=== PATIENT | female | born 1945 | race Caucasian/White ===

== ENCOUNTER 2016-11-17 15:09 | Emergency (ER) | payer MEDICAID, OTHER ==
[~2016-11-17] VITALS: Ht 154.9 cm; Wt 64.5 kg
[~2016-11-17 15:09] MED LIST: ATEN50TA PO; GABA100C14 PO; HYDR-906 PO; IBUP-1542 PO; LOPE2CAP PO; ONDA4TAB35 PO
[2016-11-17 15:11] VITALS: Ht 154.9 cm; Wt 64.5 kg
[2016-11-17] MEDS ORDERED: KETOROLAC 30 MG INJ IM STA (16:20)
[2016-11-17] MEDS ORDERED: HYDROCODONE/APAP (5/325) TAB PO ONE (16:30)
--- NOTE | 2016-11-17 17:01 | ERD ---
ER Documentation Chief Complaint Date/Time DATE: 11/17/16 TIME: 17:00 Chief Complaint LEFT BREAST PAIN X 3 DAYS HPI This 71-year-old female comes in complaining of left breast pain is been going on for 3 days. Is made worse by squeezing the breast. She is the pain is in the breast itself and not her chest. She has no shortness of breath nausea or vomiting. She has no pain in her right breast. There is been no discharge she has had no fevers. ROS All systems reviewed and are negative except as per history of present illness. Medications Home Meds Active Scripts Ibuprofen* (Ibuprofen*) 600 Mg Tablet, 600 MG PO Q6, #30 TAB Prov:ELI BENNETT PA-C 03/22/16 Hydrocodone/Acetaminophen ([place] 5-325 Tablet) 1 Each Tablet, 1 TAB PO Q6H Y for PAIN, #15 TAB Prov:NARA SAPP PA-C 02/27/16 Loperamide Hcl* (Imodium*) 2 Mg Capsule, 2 MG PO .AFTER EA LOOSE BM Y for DIARRHEA, #10 TAB Prov:DUC SHERMAN MD 05/26/15 Ondansetron Hcl* (Zofran* ODT) 4 mg -ODT Tab.disper, 4 MG PO Q6 Y for NAUSEA AND /OR VOMITING, #10 TAB Prov:DUC SHERMAN MD 05/26/15 Reported Medications Gabapentin* (Gabapentin*) 100 Mg Capsule, 200 MG PO QHS, #180 CAP 05/26/15 Atenolol* (Atenolol*) 50 Mg Tablet, 50 MG PO DAILY, TAB 05/26/15 Allergies Allergies: Coded Allergies: No Known Drug Allergies (Verified Allergy, Unknown, 05/26/15) PMhx/Soc History of Surgery: No Anesthesia Reaction: No Hx Neurological Disorder: No Hx Respiratory Disorders: No Hx Cardiac Disorders: Yes (htn,hyperlipidemia) Hx Psychiatric Problems: No Hx Miscellaneous Medical Probl: No Hx Alcohol Use: No Hx Substance Use: No Hx Tobacco Use: No Smoking Status: Never smoker Physical Exam Vitals Vital Signs Date Time Temp Pulse Resp B/P Pulse Ox O2 Delivery O2 Flow Rate FiO2 11/17/16 15:11 98.8 94 18 146/85 99 Physical Exam Const: [] No distress Neck: Full range of motion..~No JVD. Resp: Clear to auscultation bilaterally Cardio: Regular rate and rhythm, no murmurs Breasts exam: Bilateral breast with mild fibrocystic changes. No nipple discharge, normal appearance. Patient complains of some tenderness on palpation of left breast tissue. Abd: Soft, non tender, non distended. Normal bowel sounds Skin: No petechiae or rashes Results 24 hrs Current Medications Medications (Trade) Dose Ordered Sig/Carine Route PRN Reason Start Time Stop Time Status Last Admin Dose Admin Ketorolac Tromethamine (Toradol) 30 mg ONCE STAT IM 11/17/16 16:20 11/17/16 16:21 DC 11/17/16 17:12 Acetaminophen/ Hydrocodone Bitart ([place] (5/325)) 1 tab ONCE ONCE PO 11/17/16 16:30 11/17/16 16:31 DC 11/17/16 17:11 Procedures/MDM Left breast pain without obvious signs of infection. Normal ultrasound. Patient was given Toradol and Palmer for her pain. This did decrease her pain. Going to discharge her with gynecological follow-up as well as naproxen for pain. Breast ultrasound interpretation: Normal left breast. Departure Diagnosis: Primary Impression: Breast pain Condition: Stable MADISYNHOANGMISHELHARLEY MUÑOZ Nov 17, 2016 17:01
--- NOTE | 2016-11-17 18:31 | RADRPT ---
PROCEDURE: Left breast ultrasound. CLINICAL INDICATION: Left breast pain. TECHNIQUE: High-resolution sonography of the left breast was performed in the axial and sagittal p lanes. COMPARISON: No prior study is available for comparison. FINDINGS: There is no cystic or solid mass. Normal breast parenchyma is present. IMPRESSION: 1. Normal left breast ultrasound. 2. Any further management regarding any breast symptoms should be based upon clinical grounds. RPTAT: QQ .Tani Huerta MD, MD Date Time Electronically viewed and signed by .Tani Huerta MD, MD on 11/17/2016 18:30 .R/
[2016-11-17] MEDS ORDERED: NAPR-688 PO (19:49)
[2016-11-17 20:00] VITALS: BP 141/90; PULSE 72; RESP 18; TEMP 98.8
== END 2016-11-17 20:10 | disposition home or self-care (01) ==
LOC: FTE 15:09
DX: N64.4 Mastodynia (principal); I10 Essential (primary) hypertension
CPT/HCPCS: 76642; 93005; J1885; 96372

== ENCOUNTER 2016-12-31 14:08 | Inpatient (IN) | payer OTHER ==
[~2016-12-31] VITALS: Ht 162.6 cm; Wt 66.8 kg
[~2016-12-31 14:08] MED LIST changes: +NAPR-688 PO
[2016-12-31 14:09] VITALS: Ht 162.6 cm; Wt 66.8 kg
--- NOTE | 2016-12-31 14:16 | ERA ---
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 She denies similar symptoms previously , denies upper or lower extremity weakness but complains of difficulty speaking , mild headache. She denies fever, trauma, neck pain, chest pain, dyspnea, abdominal pain, vomiting, dysuria, diarrhea, constipation. She does not smoke, drinks socially, denies illicit drug Past medical history: Anxiety, hypertension Past surgical history: None ROS All systems reviewed and are negative except as per history of present illness. Medications Home Meds Reported Medications Atenolol* (Atenolol*) 50 Mg Tablet, 50 MG PO DAILY, TAB 05/26/15 Discontinued Reported Medications Gabapentin* (Gabapentin*) 100 Mg Capsule, 200 MG PO QHS, #180 CAP 05/26/15 Discontinued Scripts Naproxen* (Naproxen*) 500 Mg Tablet, 500 MG PO BID Y for PAIN, #10 TAB Prov:MISHEL MARS DO 11/17/16 Ibuprofen* (Ibuprofen*) 600 Mg Tablet, 600 MG PO Q6, #30 TAB Prov:ELI BENNETT PA-C 03/22/16 Hydrocodone/Acetaminophen ([place] 5-325 Tablet) 1 Each Tablet, 1 TAB PO Q6H Y for PAIN, #15 TAB Prov:NARA SAPP PA-C 02/27/16 Loperamide Hcl* (Imodium*) 2 Mg Capsule, 2 MG PO .AFTER EA LOOSE BM Y for DIARRHEA, #10 TAB Prov:DUC SHERMAN MD 05/26/15 Ondansetron Hcl* (Zofran* ODT) 4 mg -ODT Tab.disper, 4 MG PO Q6 Y for NAUSEA AND /OR VOMITING, #10 TAB Prov:DUC SHERMAN MD 05/26/15 Allergies Allergies: Coded Allergies: No Known Drug Allergies (Verified Allergy, Unknown, 12/31/16) PMhx/Soc History of Surgery: No Anesthesia Reaction: No Hx Neurological Disorder: No Hx Respiratory Disorders: No Hx Cardiac Disorders: Yes (htn,hyperlipidemia) Hx Psychiatric Problems: No Hx Miscellaneous Medical Probl: No Hx Alcohol Use: No Hx Substance Use: No Hx Tobacco Use: No Physical Exam Vitals Vital Signs Date Time Temp Pulse Resp B/P Pulse Ox O2 Delivery O2 Flow Rate FiO2 12/31/16 18:05 78 15 172/75 100 12/31/16 15:55 98.6 79 18 164/88 100 Room Air 12/31/16 14:09 98.3 78 19 167/89 96 Physical Exam Const: No acute distress. Anxious Head: Atraumatic. Eyes: Normal Conjunctiva. ENT: Normal External Ears, Nose and Mouth. Neck: Full range of motion. No meningismus. Resp: Clear to auscultation bilaterally. Cardio: Regular rate and rhythm. Abd: Soft, non distended, normal bowel sounds, non tender. Skin: No petechiae or rashes. Back: No midline or flank tenderness. Ext: No cyanosis, or edema. Neur: Awake and alert. No focal deficit. Slurred speech Psych: Anxious Result Diagram: 12/31/16 1420 12/31/16 1420 Results 24 hrs Laboratory Tests Test 12/31/16 14:20 12/31/16 14:38 12/31/16 14:46 White Blood Count 9.510^3/ul Red Blood Count 4.6210^6/ul Hemoglobin 14.1g/dl Hematocrit 40.8% Mean Corpuscular Volume 88.3fl Mean Corpuscular Hemoglobin 30.5pg Mean Corpuscular Hemoglobin Concent 34.6g/dl Red Cell Distribution Width 12.6% Platelet Count 48739^3/UL Mean Platelet Volume 9.4fl Neutrophils % 59.9% Lymphocytes % 26.2% Monocytes % 5.1% Eosinophils % 7.8% Basophils % 0.8% Nucleated Red Blood Cells % 0.0/100WBC Neutrophils # 5.710^3/ul Lymphocytes # 2.510^3/ul Monocytes # 0.510^3/ul Eosinophils # 0.710^3/ul Basophils # 0.110^3/ul Nucleated Red Blood Cells # 0.010^3/ul Prothrombin Time 12.3Sec Prothrombin Time Ratio 1.0 INR International Normalized Ratio 0.91 Activated Partial Thromboplast Time 32.8Sec Sodium Level 142mmol/L Potassium Level 4.3mmol/L Chloride Level 103mmol/L Carbon Dioxide Level 26mmol/L Anion Gap 17 Blood Urea Nitrogen 17mg/dl Creatinine 0.90mg/dl Glucose Level 113mg/dl Calcium Level 9.8mg/dl Troponin I < 0.012ng/ml Ethyl Alcohol Level < 10.0mg/dl Urine Opiates Screen NEGATIVE Urine Barbiturates NEGATIVE Urine Amphetamines Screen NEGATIVE Urine Benzodiazepines Screen NEGATIVE Urine Cocaine Screen NEGATIVE Urine Cannabinoids NEGATIVE Bedside Glucose 109mg/dL Current Medications Medications (Trade) Dose Ordered Sig/Carine Route PRN Reason Start Time Stop Time Status Last Admin Dose Admin Levetiracetam 100 ml @ 400 mls/hr BID IVPB 12/31/16 17:00 12/31/16 17:49 Nicardipine HCl (Cardene Iv) 200 ml @ 50 mls/hr TITRATE IV 12/31/16 17:30 12/31/16 18:04 Procedures/MDM [place] [address] Radiology Main Line: [phone] DIAGNOSTIC IMAGING REPORT Patient: RAVEN BEAVERS : 1945 Age: 71 Sex: F MR #: [id number] DOS: 12/31/16 1422 Ordering MD: DUC SHERMAN MD Location: E/R Room/Bed: PROCEDURE: Chest Radiograph. CLINICAL INDICATION: Headache TECHNIQUE: Single frontal chest radiograph. COMPARISON: Chest radiograph 07/27/2014 FINDINGS: The cardiomediastinal silhouette is within normal limits. No infiltrate or effusion is seen. The bones are intact. IMPRESSION: 1. Unremarkable chest radiograph. RPTAT: AA .Franklin Rodriguez MD, MD Date Time Electronically viewed and signed by .Franklin Rodriguez MD, on 2016 15:18 .B/ CC: DUC SHERMAN MD [place] [address] Radiology Main Line: [phone] DIAGNOSTIC IMAGING REPORT Patient: RAVEN BEAVERS : 1945 Age: 71 Sex: F MR #: [id number] DOS: 12/31/16 1422 Ordering MD: DUC SHERMAN MD Location: E/R Room/Bed: PROCEDURE: CT Brain without contrast. CLINICAL INDICATION: Headache, dizziness, slurred speech, and right arm numbness. History of hypertension. TECHNIQUE: A CT of the brain without contrast was performed utilizing axial sections from the skull base through the vertex. The patient was scanned without intravenous contrast enhancement. Sagittal and coronal reformatted images were obtained using the data from the axial images. Total exam DLP is 630.20 mGy-cm. CTDIvol is 44.93 mGy. One or more of the following dose reduction techniques were used: Automated exposure control, adjustment of the mA and/or kV according to patient size, use of iterative reconstruction technique. COMPARISON: CT scan of the brain dated 12/28/2013 which was normal. FINDINGS: There is an acute to subacute left cerebral convexity subdural hematoma extending from the vertex inferiorly and anteriorly overlying the left parietal lobe and left frontal lobe. The hematoma measures in the approximately 8.0 x 1.7 x 7.5 cm in AP, transverse, and cranial caudal dimensions. There is mass effect with shift of midline structures to the right measuring approximately 0.4 cm. The basal cisterns are intact. There is no other intracranial space occupying lesion or hemorrhage. The ventricles are normal. The posterior fossa structures are grossly normal. There is no skull fracture or lytic lesion. IMPRESSION: 1. Acute to subacute left cerebral convexity subdural hematoma with mild mass effect and midline shift measuring 0.4 cm. 2. Intact basal cisterns. 3. Otherwise unremarkable study. Call report: A call report of the findings was made to Dr. Mittal on 2016 at 1550 hours. RPTAT: QQ .Tani Huerta MD, MD Date Time Electronically viewed and signed by .Tani Huerta MD, on 12/31/2016 15:54 .R/ CC: DUC SHERMAN MD EKG: Read by emergency physician Rate/Rhythm: Normal Sinus Rhythm 83 beats/min QRS, ST, T-waves: No ST elevation, no T inversion Impression: Normal EKG Consultation: I discussed the patient with the on-call neurosurgeon Dr Mehta at 4:10 pm, who was made aware of the lab, the treatment, the present condition. He wanted to order an MRI of the brain without contrast MEDICAL MAKING DECISION: The patient is a 71-year-old female, presenting with acute subdural hematoma and acute accelerated hypertension. She was treated with Cardene drip to control her blood pressure The differential diagnoses considered include but are not limited to subarachnoid hemorrhage, occult trauma, CVA, meningitis, encephalitis, hypertension, tension, migraine, cluster, narcotic withdrawal, cervical spine disease. Critical Care: Time: 35 minutes excluding all billable procedures. Treatments/Evaluations: Close monitoring and treatment of unstable vital signs, cardiorespiratory, and neurologic status, while maintaining tight balance of fluid, respiratory, and cardiac interventions. Departure Diagnosis: Primary Impression: Acute subdural hematoma Additional Impression: Accelerated hypertension Condition: Critical Comments I discussed the findings with the patient. I discussed the patient with her physician Dr. Dr Patterson who was made aware of the lab, the treatment, the patient condition. The patient is admitted to you at 5:25 pm DUC SHERMAN MD Dec 31, 2016 14:16
[2016-12-31 14:34] LABS: BASOPHIL # 0.1 10^3/ul (0.0-0.1); BASOPHILS % 0.8 % (0.0-2.0); EOSINOPHILS # 0.7 10^3/ul (0.0-0.5); EOSINOPHILS % 7.8 % (0.0-7.0); HEMATOCRIT 40.8 % (37.0-47.0); HEMOGLOBIN 14.1 g/dl (12.0-16.0); LYMPHOCYTES # 2.5 10^3/ul (0.8-2.9); LYMPHOCYTES % 26.2 % (15.0-51.0); MEAN CORPUSCULAR HEMOGLOBIN 30.5 pg (29.0-33.0); MEAN CORPUSCULAR HGB CONC 34.6 g/dl (32.0-37.0); MEAN CORPUSCULAR VOLUME 88.3 fl (82.0-101.0); MEAN PLATELET VOLUME 9.4 fl (7.4-10.4); MONOCYTE # 0.5 10^3/ul (0.3-0.9); MONOCYTES % 5.1 % (0.0-11.0); NEUTROPHIL # 5.7 10^3/ul (1.6-7.5); NEUTROPHILS % 59.9 % (39.0-77.0); PLATELET COUNT 251 10^3/UL (140-415); RED BLOOD COUNT 4.62 10^6/ul (4.20-5.40); RED CELL DISTRIBUTION WIDTH 12.6 % (11.5-14.5); WHITE BLOOD COUNT 9.5 10^3/ul (4.8-10.8)
[2016-12-31 14:49] LABS: INR 0.91; PROTIME 12.3 Sec (12.2-14.2)
[2016-12-31 14:50] LABS: PARTIAL THROMBOPLASTIN TIME 32.8 Sec (25.0-35.0)
[2016-12-31 14:51] LABS: ANION GAP 17 (8-16); BLOOD UREA NITROGEN 17 mg/dl (7-20); CALCIUM 9.8 mg/dl (8.4-10.2); CARBON DIOXIDE 26 mmol/L (21-31); CHLORIDE 103 mmol/L (97-110); GLUCOSE 113 mg/dl (70-220); POTASSIUM 4.3 mmol/L (3.5-5.1); SODIUM 142 mmol/L (135-144)
[2016-12-31 14:57] LABS: ETHANOL < 10.0 mg/dl
[2016-12-31 15:17] LABS: TROPONIN-I < 0.012 ng/ml (0.00-0.12)
--- NOTE | 2016-12-31 15:18 | RADRPT ---
PROCEDURE: Chest Radiograph. CLINICAL INDICATION: Headache TECHNIQUE: Single frontal chest radiograph. COMPARISON: Chest radiograph 07/27/2014 FINDINGS: The cardiomediastinal silhouette is within normal limits. No infiltrate or effusion is seen. Th e bones are intact. IMPRESSION: 1. Unremarkable chest radiograph. RPTAT: AA .Franklin Rodriguez MD, MD Date Time Electronically viewed and signed by .Franklin Rodriguez MD, on 12/31/2016 15:18 .B/
[2016-12-31 15:55] VITALS: TEMP 98.6
--- NOTE | 2016-12-31 15:55 | RADRPT ---
PROCEDURE: CT Brain without contrast. CLINICAL INDICATION: Headache, dizziness, slurred speech, and right arm numbness. History of hype rtension. TECHNIQUE: A CT of the brain without contrast was performed utilizing axial sections from the skul l base through the vertex. The patient was scanned without intravenous contrast enhancement. Sagitta l and coronal reformatted images were obtained using the data from the axial images. Total exam DLP is 630.20 mGy-cm. CTDIvol is 44.93 mGy. One or more of the following dose reduction techniques we re used: Automated exposure control, adjustment of the mA and/or kV according to patient size, use o f iterative reconstruction technique. COMPARISON: CT scan of the brain dated 12/28/2013 which was normal. FINDINGS: There is an acute to subacute left cerebral convexity subdural hematoma extending from the vertex in feriorly and anteriorly overlying the left parietal lobe and left frontal lobe. The hematoma measure s in the approximately 8.0 x 1.7 x 7.5 cm in AP, transverse, and cranial caudal dimensions. There i s mass effect with shift of midline structures to the right measuring approximately 0.4 cm. The bas al cisterns are intact. There is no other intracranial space occupying lesion or hemorrhage. The ventricles are normal. The posterior fossa structures are grossly normal. There is no skull fracture or lytic lesion. IMPRESSION: 1. Acute to subacute left cerebral convexity subdural hematoma with mild mass effect and midline sh ift measuring 0.4 cm. 2. Intact basal cisterns. 3. Otherwise unremarkable study. Call report: A call report of the findings was made to Dr. Mittal on 12/31/2016 at 1550 hours. RPTAT: QQ .Tani Huerta MD, MD Date Time Electronically viewed and signed by .Tani Huerta MD, on 12/31/2016 15:54 .R/
[2016-12-31 16:22] LABS: BARBITURATES NEGATIVE (NEGATIVE); BENZODIAZEPINES NEGATIVE (NEGATIVE); CANNABINOIDS NEGATIVE (NEGATIVE); COCAINE NEGATIVE (NEGATIVE); OPIATES NEGATIVE (NEGATIVE)
[2016-12-31] MEDS ORDERED: LEVETIRACETAM 500 MG (PMX) 100 ML IVPB SCH (17:00)
[2016-12-31] MEDS ORDERED: niCARdipine-NS 0.1MG/ML DRIP 200 ML IV SCH (17:30)
[2016-12-31] MEDS ORDERED: IOHEXOL 100 ML ONE (18:03)
[2016-12-31] MEDS ORDERED: SOD CHLORIDE 0.9% 100 ML ONE (18:03)
--- NOTE | 2016-12-31 18:28 | RADRPT ---
PROCEDURE: CTA Head. CLINICAL INDICATION: "rule out dural arteriovenous fistula. spontaneous subdural hematoma. no trauma " TECHNIQUE: CTA of the head was obtained with 0.63 mm axial images. Sagittal and coronal reformatio ns and MIPs were provided. The administered radiation dose was CTDI vol = 129.97 mGy, DLP = 537.34 mGy-cm. Images were obtained prior following the intravenous contrast administration of 100 cc of Om nipaque 350 contrast. Coronal and sagittal as well as maximal intensity projection reformations wer e obtained. One or more of the following dose reduction techniques were used: Automated exposure con trol, Adjustment of the mA and/or kV according to patient size, or Use of iterative reconstruction t echnique. COMPARISON: There are no similar studies submitted for comparison. FINDINGS: CTA head: Carotid arteries: Patent bilaterally without evidence of stenosis. Anterior cerebral arteries: Patent bilaterally without evidence of stenosis. Middle cerebral arteries: Patent bilaterally without evidence of stenosis. Posterior cerebral arteries: Patent bilaterally without evidence of stenosis. Anterior communicating artery: Present. Posterior communicating arteries: Hypoplastic bilaterally Basilar artery: Patent without evidence of stenosis. Vertebral arteries: Patent bilaterally without evidence of stenosis. Vertebral artery dominance: The left vertebral artery is dominant Aneurysm: No intradural aneurysm is identified. Venous sinuses: Patent. The right transverse/sigmoid sinus internal jugular venous system is domina nt. The left frontal parietal subdural hematoma appears grossly stable in size, measuring up to 1.4 cm i n thickness over the left frontal convexity. IMPRESSION: 1. No evidence of significant intracranial arterial stenosis. 2. No evidence of intradural aneurysm. 3. No evidence of a dural arteriovenous fistula. However, it should be noted that a negative CTA ca nnot definitively exclude the presence of a dural arteriovenous fistula. Only a catheter cerebral an giogram can definitively exclude a dural arteriovenous fistula. 4. Left frontal parietal subdural hematoma, grossly stable (measuring up to 1.4 cm in thickness over the left frontal convexity) compared to noncontrast CT brain performed earlier the same day. RPTAT: PP Physician Angel Date Time Electronically viewed and signed by Physician Angel on 12/31/2016 18:28 /
[2016-12-31] MEDS ORDERED: ONDANSETRON 4 MG INJ IV STA (19:06)
[2016-12-31] MEDS ORDERED: morphine 2 MG INJ IV ONE (19:30)
[2016-12-31] MEDS ORDERED: LORAZEPAM 2 MG INJ IV PRN (21:00)
[2016-12-31] MEDS ORDERED: PANTOPRAZOLE (EC) 40 MG TAB PO SCH (21:00)
[2016-12-31] MEDS ORDERED: DEXAMETHASONE 1 MG TAB PO SCH (21:00)
[2016-12-31] MEDS ORDERED: ACETAMINOPHEN 325 MG TAB PO PRN (21:00)
[2016-12-31] MEDS: DOCUSATE SODIUM 100 MG CAP PO SCH (21:00)
[2016-12-31] MEDS: ATORVASTATIN 20 MG TAB PO SCH (21:00)
[2016-12-31] MEDS ORDERED: LEVETIRACETAM 500 MG TAB PO SCH (21:00)
[2016-12-31] MEDS: LEVETIRACETAM 500 MG TAB PO SCH (23:00)
--- NOTE | 2016-12-31 23:08 | RADRPT ---
PROCEDURE: US Carotids. CLINICAL INDICATION: Stroke TECHNIQUE: Multiple sonographic of the carotid arteries were obtained utilizing sumner scale imaging . Color and Doppler imaging was performed. The images were reviewed on a PACS workstation. COMPARISON: None FINDINGS: RIGHT: CCA 36 cm/sec Prox ICA 37 cm/sec Mid ICA 52 cm/sec Dist ICA 37 cm/sec ECA 61 cm/sec ICA/CCA: 1.4 LEFT: CCA 60 cm/sec Prox ICA 51 cm/sec Mid ICA49 cm/sec Dist ICA 39 cm/sec ECA 57 cm/sec ICA/CCA: 1.1 Antegrade flow is seen within the vertebral arteries bilaterally. Mild plaque is seen within the jefry ateral carotid bulbs. There is no evidence for hemodynamically significant stenosis or occlusion is identified. IMPRESSION: 1. Mild bilateral carotid bulb plaque without evidence for hemodynamically significant stenosis - v alidated velocity measurements with angiographic measurements, velocity criteria are extrapolated fr om diameter data as defined by the Society of Radiologists in Ultrasound Consensus Conference Radiol ogy 2003; 229;340-346. This study does indirectly reference the measurement of the distal ICA diame ter as the denominator for stenosis measurement. 2. Antegrade flow seen within the vertebral arteries bilaterally. RPTAT: HMVK .Parag Ireland MD, Date Time Electronically viewed and signed by .Parag Ireland MD, on 12/31/2016 23:07 .K/
[2017-01-01] VITALS (79 sets, daily range): BP systolic 100–146; BP diastolic 51–83; PULSE 62–96; RESP 9–25
--- NOTE | 2017-01-01 00:08 | CONS ---
Date/Time of Note Date/Time of Note DATE: 01/01/17 TIME: 00:08 Consultation Date/Type/Reason Admit Date/Time Social History Smoking Status: Never smoker Exam/Review of Systems Vital Signs Vitals Vital Signs Date Time Temp Pulse Resp B/P Pulse Ox O2 Delivery O2 Flow Rate FiO2 12/31/16 23:00 72 16 136/82 96 Room Air 12/31/16 15:55 98.6 Results Result Diagram: 12/31/16 1420 12/31/16 1420 Results 24 hrs Laboratory Tests Test 12/31/16 14:20 12/31/16 14:38 12/31/16 14:46 12/31/16 18:20 White Blood Count 9.5 # Red Blood Count 4.62 Hemoglobin 14.1 Hematocrit 40.8 Mean Corpuscular Volume 88.3 Mean Corpuscular Hemoglobin 30.5 Mean Corpuscular Hemoglobin Concent 34.6 Red Cell Distribution Width 12.6 Platelet Count 251 Mean Platelet Volume 9.4 # Neutrophils % 59.9 Lymphocytes % 26.2 Monocytes % 5.1 Eosinophils % 7.8 H Basophils % 0.8 Nucleated Red Blood Cells % 0.0 Neutrophils # 5.7 Lymphocytes # 2.5 Monocytes # 0.5 Eosinophils # 0.7 H Basophils # 0.1 Nucleated Red Blood Cells # 0.0 Prothrombin Time 12.3 Prothrombin Time Ratio 1.0 INR International Normalized Ratio 0.91 Activated Partial Thromboplast Time 32.8 Sodium Level 142 Potassium Level 4.3 Chloride Level 103 Carbon Dioxide Level 26 Anion Gap 17 H Blood Urea Nitrogen 17 Creatinine 0.90 Glucose Level 113 Calcium Level 9.8 Troponin I < 0.012 Ethyl Alcohol Level < 10.0 Urine Opiates Screen NEGATIVE Urine Barbiturates NEGATIVE Urine Amphetamines Screen NEGATIVE Urine Benzodiazepines Screen NEGATIVE Urine Cocaine Screen NEGATIVE Urine Cannabinoids NEGATIVE Bedside Glucose 109 Hemoglobin A1c 6.0 H Medications Medications Current Medications Atorvastatin Calcium (Lipitor) 20 mg QHS PO ; Start 12/31/16 at 21:00 Lorazepam (Ativan) 1 mg Q6 PRN IV SEIZURES; Start 12/31/16 at 21:00 Acetaminophen (Tylenol Tab) 650 mg Q4H PRN PO TEMP GREATER THAN 99.6F; Start at 21:00 Docusate Sodium (Colace) 100 mg BID PO ; Start 12/31/16 at 21:00 Dexamethasone (Decadron) 3 mg Q6 PO ; Start 12/31/16 at 21:00 Pantoprazole (Protonix Tab) 40 mg DAILY PO ; Start 12/31/16 at 21:00 Levetiracetam (Keppra) 500 mg BID PO ; Start 12/31/16 at 23:00 GLADIS WALLACE MD Jan 01, 2017 00:08
[2017-01-01] MEDS ORDERED: LIDOCAINE 2% (SDV) 5 ML INJ ONE (00:24)
[2017-01-01] MEDS ORDERED: FENTAnyl 50 MCG/ML VIAL ONE ×2 (00:24→00:34)
[2017-01-01] MEDS ORDERED: PROPOFOL 20 ML ONE (00:24)
[2017-01-01] MEDS ORDERED: DEXAMETHASONE 4 MG/ML 1 ML INJ ONE (01:17)
[2017-01-01] MEDS ORDERED: ONDANSETRON 4 MG INJ ONE (01:18)
[2017-01-01] MEDS ORDERED: morphine 10 MG INJ IV PRN (01:30)
[2017-01-01] MEDS ORDERED: hydrALAzine 20 MG INJ IV PRN ×2 (01:30→14:00)
[2017-01-01] MEDS ORDERED: ONDANSETRON 4 MG INJ IV PRN ×2 (01:30→02:30)
[2017-01-01] MEDS ORDERED: EPHEDrine SULFATE 50 MG/5 ML SYG IV PRN (01:30)
[2017-01-01] MEDS ORDERED: MEPERIDINE 25 MG INJ IV PRN (01:30)
[2017-01-01] MEDS ORDERED: morphine 2 MG INJ IV PRN (01:30)
[2017-01-01] MEDS ORDERED: morphine 4 MG/ML VIAL IV PRN (01:30)
[2017-01-01] MEDS ORDERED: DIPHENHYDRAMINE 50 MG INJ IV PRN (01:30)
[2017-01-01] MEDS ORDERED: LABETALOL HCL 20MG INJ IV PRN (01:30)
[2017-01-01] MEDS ORDERED: NEOSTIGMINE 3 MG/3 ML SYRINGE ONE (01:37)
[2017-01-01] MEDS ORDERED: GLYCOPYRROLATE 0.4 MG INJ ONE (01:37)
[2017-01-01] MEDS ORDERED: BACITRACIN/POLYMYXIN 0.9 GM OINT TOP ONE (01:59)
--- NOTE | 2017-01-01 02:06 | OPR ---
Date/Time of Note Date/Time of Note DATE: 01/01/17 TIME: 02:03 Operative Report Preoperative Diagnosis Left frontoparietal subacute subdural hematoma Postoperative Diagnosis Same as above Operation/Procedure Performed Left frontal and parietal burhole craniectomies for evacuation of subdural hematoma Surgeon: GLADIS WALLACE MD Anesthesia: general Estimated Blood Loss: 0 - 10 ml's Specimens None Complications: None GLADIS WALLACE MD Jan 01, 2017 02:06
[2017-01-01] MEDS ORDERED: GELATIN SIZE 100 SPONGE ONE (02:25)
[2017-01-01] MEDS ORDERED: POLYMYXIN/BACITRACIN 1L IRRIG ONE (02:25)
[2017-01-01] MEDS ORDERED: THROMBIN 5000 UNIT VIAL ONE (02:25)
[2017-01-01] MEDS ORDERED: BUPIVACAINE 0.5%/EPI (SDV) 10 ML INJ ONE (02:25)
[2017-01-01] MEDS ORDERED: LIDOCAINE 0.5% (MDV) 50 ML INJ ONE (02:25)
[2017-01-01] MEDS ORDERED: HYDROmorphONE 1 MG/ML SYG IV PRN (02:30)
[2017-01-01] MEDS ORDERED: NALOXONE (0.4 MG/ML) INJ IV PRN (02:30)
[2017-01-01] MEDS ORDERED: BISACODYL 10 MG SUPP PR PRN (02:30)
[2017-01-01] MEDS ORDERED: BACITRACIN/POLYMYXIN 28.35 GM OINT TOP ONE (02:38)
[2017-01-01] MEDS: D5-NS + KCL 20 MEQ 1,000 ML IV SCH ×2 (03:48→13:34)
[2017-01-01] MEDS: CEFAZOLIN 1 GM/50 ML (PMX) 50 ML IVPB SCH ×3 (03:51→18:29)
--- NOTE | 2017-01-01 04:14 | RADRPT ---
PROCEDURE: Noncontrast CT Head. CLINICAL INDICATION: Intracranial hemorrhage. TECHNIQUE: Noncontrast CT of the head was obtained. The administered radiation dose was CTDI vol = 45 mGy, DLP = 720 mGy-cm. COMPARISON: 12/31/2016 FINDINGS: There has been interval left frontal and parietal chikis hole formation with placement of a subdural d rainage catheter. Some intracranial emphysema is present. The left convexity subdural collection i s decreased in size, measuring up to 9 mm in thickness. There is some mild regional mass effect sub tle left hemispheric sulcal effacement. There is no midline shift. There is no loss of the sumner-white differentiation to suggest an acute territorial infarct. No new areas of acute intracranial hemorrhage are seen. Underlying mild diffuse parenchymal volume loss an d chronic microvascular changes are noted. IMPRESSION: Interval drainage of the left convexity subdural hematoma with decrease in size of the subdural rachael ection and resolution of midline shift. RPTAT: HIKT .Miguelito Thakkar MD, MD Date Time Electronically viewed and signed by .Miguelito Thakkar MD, on 01/01/2017 04:13 .T/
[2017-01-01 06:51] LABS: WHITE BLOOD COUNT 9.7 10^3/ul (4.8-10.8)
[2017-01-01 06:52] LABS: BASOPHILS % 0.4 % (0.0-2.0); EOSINOPHILS % 0.1 % (0.0-7.0); HEMATOCRIT 40.6 % (37.0-47.0); HEMOGLOBIN 13.9 g/dl (12.0-16.0); LYMPHOCYTES # 0.8 10^3/ul (0.8-2.9); LYMPHOCYTES % 8.1 % (15.0-51.0); MEAN CORPUSCULAR HEMOGLOBIN 30.3 pg (29.0-33.0); MEAN CORPUSCULAR HGB CONC 34.2 g/dl (32.0-37.0); MEAN CORPUSCULAR VOLUME 88.6 fl (82.0-101.0); MEAN PLATELET VOLUME 9.7 fl (7.4-10.4); MONOCYTE # 0.1 10^3/ul (0.3-0.9); MONOCYTES % 0.9 % (0.0-11.0); NEUTROPHIL # 8.7 10^3/ul (1.6-7.5); NEUTROPHILS % 90.1 % (39.0-77.0); PLATELET COUNT 223 10^3/UL (140-415); RED BLOOD COUNT 4.58 10^6/ul (4.20-5.40); RED CELL DISTRIBUTION WIDTH 12.8 % (11.5-14.5)
[2017-01-01] MEDS: PANTOPRAZOLE 40 MG INJ IV SCH (07:11)
[2017-01-01 07:18] LABS: CHOL/HDL RATIO 2.9 RATIO
[2017-01-01 07:44] LABS: ALBUMIN 4.2 g/dl (3.3-4.9); ALBUMIN/GLOBULIN RATIO 1.5; BILIRUBIN,INDIRECT 0.3 mg/dl (0-1.1); BILIRUBIN,TOTAL 0.3 mg/dl (0.2-1.3); CALCIUM 9.1 mg/dl (8.4-10.2); CREATININE 0.65 mg/dl (0.44-1.00); POTASSIUM 3.9 mmol/L (3.5-5.1)
[2017-01-01] MEDS: DOCUSATE SODIUM 100 MG CAP PO SCH ×2 (08:20→20:59)
[2017-01-01] MEDS: NEOMYC/POLYMYX/BACIT 30 GM OINT TOP SCH ×2 (08:20→21:02)
[2017-01-01] MEDS: LEVETIRACETAM 500 MG TAB PO SCH ×2 (08:21→21:02)
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
--- NOTE | 2017-01-01 13:23 | PN ---
Date/Time of Note Date/Time of Note DATE: 01/01/17 TIME: 13:08 Assessment/Plan VTE Prophylaxis VTE Prophylaxis Intervention: SCD's Lines/Catheters IV Catheter Type (from Nrs): Peripheral IV Urinary Cath still in place: Yes Reason Cath still needed: other (indicate) (Bed rest) Assessment/Plan Assessment/Plan 71-year-old female: 1. Traumatic left frontoparietal subacute subdural hematoma, status post left frontal and parietal burhole craniotomies for evacuation of subdural hematoma, postoperative day #0 Patient remained stable, she does have a ventriculostomy drain Minimal pain at surgical site On Keppra for seizure prophylaxis Dr. Owusu from neurosurgery following 2. History of alcohol use and binge drinking, no signs of withdrawal. We will continue to monitor 3. Hypertension: Currently normotensive, continue to monitor, goal systolic blood pressure less than 140. Will start Norvasc if needs blood pressure control, for now will order hydralazine as needed. Prophylaxis: Protonix for GI prophylaxis, SCDs for DVT prophylaxis Disposition: ICU monitoring for now, neurosurgery following. Subjective 24 Hr Interval Summary Free Text/Dictation Patient status post evacuation of subdural hemorrhage Ventriculostomy in place She does not complain of significant pain, moving all 4 extremities and a having full conversation with relatives and myself. In ICU on observation, Dr. Mehta following Exam/Review of Systems Vital Signs Vitals Vital Signs Date Time Temp Pulse Resp B/P Pulse Ox O2 Delivery O2 Flow Rate FiO2 01/01/17 12:00 82 01/01/17 06:00 10 110/61 100 01/01/17 04:00 Nasal Cannula 2.0 01/01/17 02:27 97.8 Intake and Output 12/31/16 12/31/16 01/01/17 15:00 23:00 07:00 Intake Total 1550 ml Output Total 525 ml Balance 1025 ml Exam Constitutional: alert, oriented, well developed Head: other (Status post subdural hematoma evacuation, patient does have a left ventriculostomy drain in place) Respiratory: clear to auscultation, normal air movement Cardiovascular: nl pulses, regular rate and rhythm Gastrointestinal: non-tender, soft Musculoskeletal: nl extremities to inspection Extremities: normal pulses, other (No edema, clubbing or cyanosis) Neurological: AUTOMOTIVE MANUFACTURER II-XII intact, nl mental status, nl speech, other (Currently on bed rest) Results Result Diagram: 01/01/17 0605 01/01/17 0605 Results 24 hrs Laboratory Tests Test 12/31/16 14:20 12/31/16 14:38 12/31/16 14:46 12/31/16 18:20 White Blood Count 9.5 # Red Blood Count 4.62 Hemoglobin 14.1 Hematocrit 40.8 Mean Corpuscular Volume 88.3 Mean Corpuscular Hemoglobin 30.5 Mean Corpuscular Hemoglobin Concent 34.6 Red Cell Distribution Width 12.6 Platelet Count 251 Mean Platelet Volume 9.4 # Neutrophils % 59.9 Lymphocytes % 26.2 Monocytes % 5.1 Eosinophils % 7.8 H Basophils % 0.8 Nucleated Red Blood Cells % 0.0 Neutrophils # 5.7 Lymphocytes # 2.5 Monocytes # 0.5 Eosinophils # 0.7 H Basophils # 0.1 Nucleated Red Blood Cells # 0.0 Prothrombin Time 12.3 Prothrombin Time Ratio 1.0 INR International Normalized Ratio 0.91 Activated Partial Thromboplast Time 32.8 Sodium Level 142 Potassium Level 4.3 Chloride Level 103 Carbon Dioxide Level 26 Anion Gap 17 H Blood Urea Nitrogen 17 Creatinine 0.90 Glucose Level 113 Calcium Level 9.8 Troponin I < 0.012 Ethyl Alcohol Level < 10.0 Urine Opiates Screen NEGATIVE Urine Barbiturates NEGATIVE Urine Amphetamines Screen NEGATIVE Urine Benzodiazepines Screen NEGATIVE Urine Cocaine Screen NEGATIVE Urine Cannabinoids NEGATIVE Bedside Glucose 109 Hemoglobin A1c 6.0 H Test 01/01/17 06:05 White Blood Count 9.7 Red Blood Count 4.58 Hemoglobin 13.9 Hematocrit 40.6 Mean Corpuscular Volume 88.6 Mean Corpuscular Hemoglobin 30.3 Mean Corpuscular Hemoglobin Concent 34.2 Red Cell Distribution Width 12.8 Platelet Count 223 Mean Platelet Volume 9.7 Neutrophils % 90.1 H Lymphocytes % 8.1 L Monocytes % 0.9 Eosinophils % 0.1 Basophils % 0.4 Nucleated Red Blood Cells % 0.0 Neutrophils # 8.7 H Lymphocytes # 0.8 Monocytes # 0.1 L Eosinophils # 0.0 Basophils # 0.0 Nucleated Red Blood Cells # 0.0 Sodium Level 143 Potassium Level 3.9 Chloride Level 104 Carbon Dioxide Level 23 Anion Gap 20 H Blood Urea Nitrogen 15 Creatinine 0.65 Glucose Level 194 Calcium Level 9.1 Magnesium Level 2.0 Total Bilirubin 0.3 Direct Bilirubin 0.00 Indirect Bilirubin 0.3 Aspartate Amino Transf (AST/SGOT) 26 Alanine Aminotransferase (ALT/SGPT) 38 Alkaline Phosphatase 127 H Total Protein 7.0 Albumin 4.2 Globulin 2.80 Albumin/Globulin Ratio 1.50 Triglycerides Level 63 Cholesterol Level 186 LDL Cholesterol, Calculated 110 HDL Cholesterol 63 Cholesterol/HDL Ratio 2.9 Medications Medications Current Medications Atorvastatin Calcium (Lipitor) 20 mg QHS PO ; Start 12/31/16 at 21:00 Acetaminophen (Tylenol Tab) 650 mg Q4H PRN PO TEMP GREATER THAN 99.6F; Start at 21:00 Docusate Sodium (Colace) 100 mg BID PO Last administered on 01/01/17 08:20; Admin Dose 100 MG; Start 12/31/16 at 21:00 Levetiracetam (Keppra) 500 mg BID PO Last administered on 01/01/17 08:21; Admin Dose 500 MG; Start 12/31/16 at 23:00 Acetaminophen/ Hydrocodone Bitart ([place] (5/325)) 1 tab Q4H PRN PO PAIN LEVEL 1 -5; Start 01/01/17 at 02:30 Hydromorphone HCl 0.2 mg 0.2 mg Q1H PRN IV BREAKTHROUGH PAIN; Start 01/01/17 at 02:30 Cefazolin Sodium (Ancef 1 Gm/50 ml (Pmx)) 50 ml @ 100 mls/hr Q8H IVPB Last administered on 01/01/17 10:23; Admin Dose 100 MLS/HR; Start 01/01/17 at 02:30 ; Stop 01/01/17 at 18:59 Ondansetron HCl (Zofran Inj) 4 mg Q6H PRN IV NAUSEA AND/OR VOMITING; Start at 02:30 Bisacodyl (Dulcolax Supp) 10 mg DAILY PRN [place] CONSTIPATION; Start 01/01/17 at 02 :30 Pantoprazole (Protonix Iv) 40 mg DAILY@06 IV Last administered on 01/01/17 07: 11; Admin Dose 40 MG; Start 01/01/17 at 06:00 Naloxone HCl 0.2 mg 0.2 mg Q2M PRN IV RR 8 BREATHS/MIN OR LESS; Start 01/01/17 at 02:30 Potassium Chloride/Dextrose/ Sod Cl (D5-NS + KCl 20 Meq) 1,000 ml @ 100 mls/hr Q10H IV Last administered on 01/01/17 03:48; Admin Dose 100 MLS/HR; Start at 02:30 Neomycin/ Polymyxin/ Bacitracin (Neosporin Topical Oint) 1 applic BID TOP Last administered on 01/01/17 08:20; Admin Dose 1 APPLIC; Start 01/01/17 at 09:00 Procedures Procedures Date/Time of Note Date/Time of Note DATE: 01/01/17 TIME: 02:03 Operative Report Preoperative Diagnosis Left frontoparietal subacute subdural hematoma Postoperative Diagnosis Same as above Operation/Procedure Performed Left frontal and parietal burhole craniectomies for evacuation of subdural hematoma Surgeon: GLADIS MEHTA MD Anesthesia: general Estimated Blood Loss: 0 - 10 ml's Specimens None Complications: None PROCEDURE: Noncontrast CT Head. CLINICAL INDICATION: Intracranial hemorrhage. TECHNIQUE: Noncontrast CT of the head was obtained. The administered radiation dose was CTDI vol = 45 mGy, DLP = 720 mGy-cm. COMPARISON: 12/31/2016 FINDINGS: There has been interval left frontal and parietal chikis hole formation with placement of a subdural drainage catheter. Some intracranial emphysema is present. The left convexity subdural collection is decreased in size, measuring up to 9 mm in thickness. There is some mild regional mass effect subtle left hemispheric sulcal effacement. There is no midline shift. There is no loss of the sumner-white differentiation to suggest an acute territorial infarct. No new areas of acute intracranial hemorrhage are seen. Underlying mild diffuse parenchymal volume loss and chronic microvascular changes are noted. IMPRESSION: Interval drainage of the left convexity subdural hematoma with decrease in size of the subdural collection and resolution of midline shift. RPTAT: HIKT .Miguelito Thakkar MD, MD Date Time Electronically viewed and signed by .Miguelito Thakkar MD, on 01/01/2017 04:13 .T/ CC: GLADIS MEHTA MD, N'DEYE F Jan 01, 2017 13:20
[2017-01-01] MEDS: ATORVASTATIN 20 MG TAB PO SCH (21:00)
[2017-01-02] VITALS (72 sets, daily range): BP systolic 110–179; BP diastolic 51–121; PULSE 57–84; RESP 11–22
[2017-01-02] MEDS: D5-NS + KCL 20 MEQ 1,000 ML IV SCH ×2 (03:57→08:33)
[2017-01-02] MEDS: PANTOPRAZOLE 40 MG INJ IV SCH (05:30)
[2017-01-02 06:53] LABS: BASOPHIL # 0.1 10^3/ul (0.0-0.1); BASOPHILS % 0.4 % (0.0-2.0); EOSINOPHILS # 0.1 10^3/ul (0.0-0.5); EOSINOPHILS % 0.6 % (0.0-7.0); HEMATOCRIT 39.5 % (37.0-47.0); HEMOGLOBIN 13.5 g/dl (12.0-16.0); LYMPHOCYTES # 2.2 10^3/ul (0.8-2.9); LYMPHOCYTES % 15.5 % (15.0-51.0); MEAN CORPUSCULAR HEMOGLOBIN 30.8 pg (29.0-33.0); MEAN CORPUSCULAR HGB CONC 34.2 g/dl (32.0-37.0); MEAN CORPUSCULAR VOLUME 90.2 fl (82.0-101.0); MEAN PLATELET VOLUME 9.9 fl (7.4-10.4); MONOCYTE # 0.7 10^3/ul (0.3-0.9); MONOCYTES % 5.1 % (0.0-11.0); NEUTROPHIL # 10.9 10^3/ul (1.6-7.5); PLATELET COUNT 232 10^3/UL (140-415); RED BLOOD COUNT 4.38 10^6/ul (4.20-5.40); RED CELL DISTRIBUTION WIDTH 12.6 % (11.5-14.5)
[2017-01-02 07:38] LABS: CALCIUM 8.9 mg/dl (8.4-10.2); CREATININE 0.59 mg/dl (0.44-1.00); POTASSIUM 4.1 mmol/L (3.5-5.1)
[2017-01-02 07:54] LABS: MAGNESIUM 2.1 mg/dl (1.7-2.5); PHOSPHORUS 2.7 mg/dl (2.5-4.9)
[2017-01-02] MEDS: DOCUSATE SODIUM 100 MG CAP PO SCH ×2 (08:31→21:03)
[2017-01-02] MEDS: LEVETIRACETAM 500 MG TAB PO SCH ×2 (08:31→21:03)
[2017-01-02] MEDS: NEOMYC/POLYMYX/BACIT 30 GM OINT TOP SCH ×2 (08:32→21:04)
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
[2017-01-02] MEDS: AMLODIPINE 5 MG TAB PO SCH (10:57)
[2017-01-02 11:40] LABS: HOMOCYSTEINE - CARDIOVASCULAR 9.2 umol/L (<10.4)
[2017-01-02] MEDS: HYDROCODONE/APAP (5/325) TAB PO PRN ×2 (12:40→17:32)
[2017-01-02] MEDS: ATORVASTATIN 20 MG TAB PO SCH (21:02)
[2017-01-03 02:00] VITALS: BP 121/67; PULSE 85; RESP 18
[2017-01-03] MEDS: HYDROCODONE/APAP (5/325) TAB PO PRN ×2 (04:11→16:46)
[2017-01-03 06:08] LABS: BASOPHIL # 0.1 10^3/ul (0.0-0.1); BASOPHILS % 0.6 % (0.0-2.0); EOSINOPHILS # 0.6 10^3/ul (0.0-0.5); EOSINOPHILS % 6.2 % (0.0-7.0); HEMATOCRIT 40.9 % (37.0-47.0); HEMOGLOBIN 13.7 g/dl (12.0-16.0); LYMPHOCYTES # 2.8 10^3/ul (0.8-2.9); LYMPHOCYTES % 27.6 % (15.0-51.0); MEAN CORPUSCULAR HEMOGLOBIN 30.5 pg (29.0-33.0); MEAN CORPUSCULAR HGB CONC 33.5 g/dl (32.0-37.0); MEAN CORPUSCULAR VOLUME 91.1 fl (82.0-101.0); MEAN PLATELET VOLUME 9.8 fl (7.4-10.4); MONOCYTE # 0.5 10^3/ul (0.3-0.9); MONOCYTES % 5.3 % (0.0-11.0); NEUTROPHILS % 59.9 % (39.0-77.0); PLATELET COUNT 242 10^3/UL (140-415); RED BLOOD COUNT 4.49 10^6/ul (4.20-5.40); RED CELL DISTRIBUTION WIDTH 12.7 % (11.5-14.5)
[2017-01-03] MEDS: PANTOPRAZOLE 40 MG INJ IV SCH (06:14)
[2017-01-03 06:55] LABS: CALCIUM 9.3 mg/dl (8.4-10.2); CREATININE 0.81 mg/dl (0.44-1.00); POTASSIUM 4.2 mmol/L (3.5-5.1)
[2017-01-03 08:19] VITALS: BP 114/70; RESP 20
[2017-01-03] MEDS: DOCUSATE SODIUM 100 MG CAP PO SCH ×2 (08:27→20:32)
[2017-01-03] MEDS: AMLODIPINE 5 MG TAB PO SCH (08:27)
[2017-01-03] MEDS: LEVETIRACETAM 500 MG TAB PO SCH ×2 (08:27→20:32)
--- NOTE | 2017-01-03 09:26 | PN ---
Date/Time of Note Date/Time of Note DATE: 01/03/17 TIME: 09:22 Assessment/Plan VTE Prophylaxis VTE Prophylaxis Intervention: ambulation, SCD's Lines/Catheters IV Catheter Type (from Nrs): Saline Lock Urinary Cath still in place: No Assessment/Plan Assessment/Plan 71-year-old female: 1. Traumatic left frontoparietal subacute subdural hematoma, status post left frontal and parietal burhole craniotomies for evacuation of subdural hematoma, postoperative day #2; Patient remains stable, and ventriculostomy drain has been removed yesterday. Minimal pain at surgical site On Keppra for seizure prophylaxis; will consider discontinuing. 2. History of alcohol use and binge drinking, no signs of withdrawal. We will continue to monitor. 3. Hypertension: Currently normotensive, continue to monitor, goal systolic blood pressure less than 140. Responding well to Norvasc 5 mg p.o. daily today, continue hydralazine as needed. Prophylaxis: Protonix for GI prophylaxis, SCDs for DVT prophylaxis Disposition: To home in 24 hours if the patient remains stable. Subjective 24 Hr Interval Summary Free Text/Dictation Feels well this AM. She ate breakfast and tolerated it. Her WEAVER has improved since surgery. Exam/Review of Systems Vital Signs Vitals Vital Signs Date Time Temp Pulse Resp B/P Pulse Ox O2 Delivery O2 Flow Rate FiO2 01/03/17 08:19 98.2 86 20 114/70 94 01/03/17 02:00 Room Air 01/03/17 00:39 2.0 Intake and Output 01/02/17 01/02/17 01/03/17 15:00 23:00 07:00 Intake Total 1600 ml 340 ml 480 ml Output Total 836 ml 401 ml 1000 ml Balance 764 ml -61 ml -520 ml Exam Constitutional: alert, oriented Psych: no complaints Head: other (incision site is C/D/I) Eyes: nl conjunctiva ENMT: nl external ears & nose Neck: supple Respiratory: clear to auscultation Cardiovascular: regular rate and rhythm Gastrointestinal: soft Genitourinary - Female: nl adnexae Musculoskeletal: nl extremities to inspection Extremities: normal pulses Neurological: FIBER ANALYST II-XII intact Results Result Diagram: 01/03/17 0538 01/03/17 0538 Results 24 hrs Laboratory Tests Test 01/03/17 05:38 White Blood Count 10.0 # Red Blood Count 4.49 Hemoglobin 13.7 Hematocrit 40.9 Mean Corpuscular Volume 91.1 Mean Corpuscular Hemoglobin 30.5 Mean Corpuscular Hemoglobin Concent 33.5 Red Cell Distribution Width 12.7 Platelet Count 242 Mean Platelet Volume 9.8 Neutrophils % 59.9 Lymphocytes % 27.6 Monocytes % 5.3 Eosinophils % 6.2 Basophils % 0.6 Nucleated Red Blood Cells % 0.0 Neutrophils # 6.0 Lymphocytes # 2.8 Monocytes # 0.5 Eosinophils # 0.6 H Basophils # 0.1 Nucleated Red Blood Cells # 0.0 Sodium Level 141 Potassium Level 4.2 Chloride Level 101 Carbon Dioxide Level 27 Anion Gap 17 H Blood Urea Nitrogen 18 Creatinine 0.81 Glucose Level 120 Calcium Level 9.3 Magnesium Level 1.9 Medications Medications Current Medications Atorvastatin Calcium (Lipitor) 20 mg QHS PO Last administered on 01/02/17 21: 02; Admin Dose 20 MG; Start 12/31/16 at 21:00 Acetaminophen (Tylenol Tab) 650 mg Q4H PRN PO TEMP GREATER THAN 99.6F; Start at 21:00 Docusate Sodium (Colace) 100 mg BID PO Last administered on 01/03/17 08:27; Admin Dose 100 MG; Start 12/31/16 at 21:00 Levetiracetam (Keppra) 500 mg BID PO Last administered on 01/03/17 08:27; Admin Dose 500 MG; Start 12/31/16 at 23:00 Acetaminophen/ Hydrocodone Bitart ([place] (5/325)) 1 tab Q4H PRN PO PAIN LEVEL 1 -5 Last administered on 01/03/17 04:11; Admin Dose 1 TAB; Start 01/01/17 at 02: 30 Hydromorphone HCl (Dilaudid) 0.2 mg Q1H PRN IV BREAKTHROUGH PAIN Last administered on 01/02/17 07:58; Admin Dose 0.2 MG; Start 01/01/17 at 02:30 Ondansetron HCl (Zofran Inj) 4 mg Q6H PRN IV NAUSEA AND/OR VOMITING; Start at 02:30 Bisacodyl (Dulcolax Supp) [address] CONSTIPATION; Start 01/01/17 at 02 :30 Pantoprazole (Protonix Iv) 40 mg DAILY@06 IV Last administered on 01/03/17 06: 14; Admin Dose 40 MG; Start 01/01/17 at 06:00 Naloxone HCl (Narcan) 0.2 mg Q2M PRN IV RR 8 BREATHS/MIN OR LESS; Start at 02:30 Neomycin/ Polymyxin/ Bacitracin (Neosporin Topical Oint) 1 applic BID TOP Last administered on 01/02/17 21:04; Admin Dose 1 APPLIC; Start 01/01/17 at 09:00 Hydralazine HCl (Apresoline) 10 mg Q8H PRN IV ELEVATED BLOOD PRESSURE Last administered on 01/02/17 13:52; Admin Dose 10 MG; Start 01/01/17 at 14:00 Amlodipine Besylate (Norvasc) 5 mg DAILY PO Last administered on 01/03/17 08: 27; Admin Dose 5 MG; Start 01/02/17 at 09:30 SHERMAN HICKEY MD Jan 03, 2017 09:26
[2017-01-03] MEDS: MAGNESIUM HYDROXIDE 30ML CUP PO SCH ×2 (12:05→20:32)
[2017-01-03] MEDS: NEOMYC/POLYMYX/BACIT 30 GM OINT TOP SCH ×2 (12:05→20:32)
[2017-01-03 19:50] VITALS: BP 121/58; RESP 18
[2017-01-03] MEDS: ATORVASTATIN 20 MG TAB PO SCH (20:32)
[2017-01-04] MEDS: HYDROCODONE/APAP (5/325) TAB PO PRN (01:17)
[2017-01-04 02:50] VITALS: BP 120/70; RESP 18
[2017-01-04 04:57] LABS: BASOPHIL # 0.1 10^3/ul (0.0-0.1); BASOPHILS % 0.6 % (0.0-2.0); EOSINOPHILS # 0.8 10^3/ul (0.0-0.5); EOSINOPHILS % 8.8 % (0.0-7.0); HEMATOCRIT 42.3 % (37.0-47.0); HEMOGLOBIN 14.5 g/dl (12.0-16.0); LYMPHOCYTES # 2.3 10^3/ul (0.8-2.9); LYMPHOCYTES % 25.9 % (15.0-51.0); MEAN CORPUSCULAR HEMOGLOBIN 30.5 pg (29.0-33.0); MEAN CORPUSCULAR HGB CONC 34.3 g/dl (32.0-37.0); MEAN CORPUSCULAR VOLUME 89.1 fl (82.0-101.0); MEAN PLATELET VOLUME 9.5 fl (7.4-10.4); MONOCYTE # 0.5 10^3/ul (0.3-0.9); MONOCYTES % 6.1 % (0.0-11.0); NEUTROPHIL # 5.1 10^3/ul (1.6-7.5); NEUTROPHILS % 58.4 % (39.0-77.0); PLATELET COUNT 255 10^3/UL (140-415); RED BLOOD COUNT 4.75 10^6/ul (4.20-5.40); RED CELL DISTRIBUTION WIDTH 12.4 % (11.5-14.5); WHITE BLOOD COUNT 8.8 10^3/ul (4.8-10.8)
[2017-01-04 05:19] LABS: CALCIUM 9.5 mg/dl (8.4-10.2); CREATININE 0.62 mg/dl (0.44-1.00); POTASSIUM 4.8 mmol/L (3.5-5.1)
[2017-01-04 05:29] LABS: BILIRUBIN,INDIRECT 0.3 mg/dl (0-1.1); BILIRUBIN,TOTAL 0.3 mg/dl (0.2-1.3); TOTAL PROTEIN 6.7 g/dl (6.1-8.1)
[2017-01-04] MEDS: PANTOPRAZOLE 40 MG INJ IV SCH (06:27)
[2017-01-04 08:12] VITALS: BP 136/76; RESP 20
[2017-01-04] MEDS: NEOMYC/POLYMYX/BACIT 30 GM OINT TOP SCH (09:07)
[2017-01-04] MEDS: DOCUSATE SODIUM 100 MG CAP PO SCH (09:07)
[2017-01-04] MEDS: AMLODIPINE 5 MG TAB PO SCH (09:08)
[2017-01-04] MEDS: MAGNESIUM HYDROXIDE 30ML CUP PO SCH (09:08)
[2017-01-04] MEDS: LEVETIRACETAM 500 MG TAB PO SCH (09:08)
[2017-01-04] MEDS ORDERED: AMLO-145 PO (11:57)
[2017-01-04] MEDS ORDERED: LEVE-5 PO (11:57)
[2017-01-04] MEDS ORDERED: ATOR20TA65 PO (11:57)
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
--- NOTE | 2017-01-04 12:00 | PDOCDIS ---
Discharge Instructions DIAGNOSIS Discharge Diagnosis 1. Left fronto-parietal subdural hemorrhage: Stable; s/p craniectomies and evacuation of hematoma; POD #3; doing well. Pain is well-controlled and she is ambulating over 400 feet without assistive devices. She will continue on Keppra 500 mg twice daily for seizure prophylaxis. 2. HTN: Stable on Norvasc 5 mg daily 3. Hyperlipidemia: Stable; continue diet and exercise and lipitor 20 mg daily. 4. Alcohol dependence: Improved; the patient binge drinks. Her last drink was about 5-6 weeks ago; She is NOT a daily drinker. CONDITION Patient Condition: Good HOME CARE INSTRUCTIONS: Diet Instructions: Low Fat /Cholesterol ACTIVITY: Activity Restrictions: Slowly Increase Activity Rest between Activity Avoid heavy lifting Do not Drive Do not operate Machinery Do not operate Power Tool Avoid Heavy Housework Bathing Restrictions: Do not wet or wash your hair; parag must remain dry. FOLLOW UP/APPOINTMENTS Follow-up Plan 1. Follow-up with Dr. Mehta in 3 weeks; Get a CT scan of your brain 4 days before your appointment. 2. Follow-up with your PCP in 7-10 days SHERMAN HICKEY MD Jan 04, 2017 12:00
== END 2017-01-04 14:40 | disposition home or self-care (01) | DRG 27 ==
LOC: E/R 14:08 → SDS 01-01 00:06 → ICU 01-01 02:10 → SDS 01-01 02:44 → MS1 01-02 20:23
PROVIDERS: ADMIT Internal Medicine; ATTEND Internal Medicine
PROC: 00C40ZZ Extirpation of Matter from Intracranial Subdural Space, Open Approach (ICD-10-PCS; principal; 2017-01-01 00:30)
DX: S06.5X0A Traumatic subdural hemorrhage without loss of consciousness, initial encounter (principal); I10 Essential (primary) hypertension; R20.0 Anesthesia of skin; R47.81 Slurred speech; R51 Headache; E78.5 Hyperlipidemia, unspecified; F10.20 Alcohol dependence, uncomplicated; V49.9XXA Car occupant (driver) (passenger) injured in unspecified traffic accident, initial encounter
CPT/HCPCS: 36415; 70450; 70496; 71010; 80048; 80053; 80061; 80076; 80306; 80307; 82962; 83036; 83090; 83735; 84100; 84484; 85025; 85610; 85730; 86850; 86900; 86901; 93005; 93880; 96374; 96375; 97162; C9113; J0360; J0690; J1100; J1170; J1644; J1953; J2405; J2710; J3010; J3480; Q9967

== ENCOUNTER 2018-01-22 20:19 | Observation (INO) | END 2018-01-23 16:18 | disposition home or self-care (01) ==

== ENCOUNTER 2018-04-26 21:07 | Emergency (ER) | END 2018-04-27 03:18 | disposition home or self-care (01) ==

== ENCOUNTER 2019-02-14 14:36 | Emergency (ER) | payer MEDICAID, OTHER ==
[~2019-02-14] VITALS: Ht 149.9 cm; Wt 68.0 kg
[~2019-02-14 14:36] MED LIST changes: +AMLO-147 PO; +CARB100T2 PO; +CARB200T43 PO; -GABA100C14 PO; +GABA300C16 PO; +HYDR-3980 PO; -HYDR-906 PO; -IBUP-1542 PO; -LOPE2CAP PO; +MECL12.574 PO; -NAPR-688 PO; -ONDA4TAB35 PO; +ZOLP5TAB PO
[2019-02-14 14:39] VITALS: Ht 149.9 cm; Wt 68.0 kg
[2019-02-14] MEDS ORDERED: ACETAMINOPHEN 325 MG TAB PO ONE (16:00)
[2019-02-14] MEDS ORDERED: MECLIZINE 12.5 MG TAB PO ONE (16:00)
[2019-02-14 18:56] VITALS: BP 158/65; PULSE 75; RESP 19
== END 2019-02-14 18:56 | disposition home or self-care (01) ==
LOC: E/R 14:36
DX: R42 Dizziness and giddiness (principal); I10 Essential (primary) hypertension; Z86.73 Personal history of transient ischemic attack (TIA), and cerebral infarction without residual deficits
CPT/HCPCS: 70450